=== PATIENT | male | born 1995 | race African-American/Black ===

== ENCOUNTER 2022-09-05 21:55 | Emergency (ER) | payer MEDICAID ==
[~2022-09-05] VITALS: Ht 185.4 cm; Wt 106.0 kg
[2022-09-05] MEDS ORDERED: FAMOTIDINE 20MG/2ML VIAL IV STA (23:16)
[2022-09-05] MEDS ORDERED: MORPHINE SULFATE 4 MG/ML CPJ (NOT FOR IM USE) IV STA (23:16)
[2022-09-05] MEDS ORDERED: METOCLOPRAMIDE HCL 10MG/2ML VIAL IV STA (23:16)
[2022-09-05] MEDS ORDERED: SODIUM CHLORIDE 0.9% 1,000 ML IV ONE (23:30)
[2022-09-05 23:32] LABS: HEMATOCRIT. 45.1 % (42.0-52.0); HEMOGLOBIN. 15.1 g/dL (14.0-18.0); MEAN CORPUSCULAR HEMOGLOBIN 30.4 pg (28.0-32.0); MEAN CORPUSCULAR VOLUME 90.9 fL (80.0-94.0); MEAN PLATELET VOLUME 9.2 fl (7.4-10.4); PLATELET 275 x1000/uL (130-400); RED BLOOD CELL COUNT 4.96 mill/uL (4.7-6.1); RED CELL DISTRIBUTION WIDTH 12.9 % (11.6-14.6)
[2022-09-05 23:55] LABS: CHLORIDE 105 mEq/L (98-107)
[2022-09-06 00:08] LABS: ETHANOL BLOOD < 10 mg/dL
[2022-09-06 01:52] LABS: PLATELET ESTIMATE NORMAL
[2022-09-06] MEDS ORDERED: MORPHINE SULFATE 4 MG/ML CPJ (NOT FOR IM USE) IV NR (01:57)
[2022-09-06] MEDS ORDERED: SODIUM CHLORIDE 0.9% 1,000 ML IV ONE (02:00)
[2022-09-06 02:13] VITALS: BP 139/73
[2022-09-06] MEDS ORDERED: CEFTRIAXONE 1 G PREMIX 50 ML IV ONE (02:15)
[2022-09-06] MEDS ORDERED: METRONIDAZOLE 500 MG PREMIX 100 ML IV ONE (02:15)
== END 2022-09-06 05:07 | disposition short-term general hospital (02) ==
LOC: ER 22:07 → CANBEDREQ 09-06 08:27
DX: R10.84 Generalized abdominal pain (principal); D72.829 Elevated white blood cell count, unspecified
CPT/HCPCS: 36415; 71045; 74176; 76700; 80053; 80320; 83605; 83690; 84484; 85025; 85379; 86850; 86900; 86901; 96365; 96368; 96375; 96376; 99285; J0696; J2270; J2765; J3490; J7030; G0480